=== PATIENT | female | born 1990 | race African-American/Black ===

== ENCOUNTER 2018-11-02 06:01 | Inpatient (IN) ==
[2018-11-02] MEDS ORDERED: BUTORPHANOL 2 MG/ML VIAL IV PRN (06:18)
[2018-11-02] MEDS ORDERED: ONDANSETRON 4 MG/2 ML VIAL IV PRN (06:18)
[2018-11-02] MEDS ORDERED: MEPERIDINE 50 MG/1 ML VIAL IV PRN (06:18)
[2018-11-02] MEDS ORDERED: AMPICILLIN INJ 2,000 MG in SODIUM CHLORIDE 0.9% 100 ML IV SCH (06:30)
[2018-11-02] MEDS ORDERED: OXYTOCIN/LR 20 UNIT/1,000 ML BAG IV SCH (06:30)
[2018-11-02] MEDS ORDERED: LACTATED RINGERS 1,000 ML IV SCH (06:30)
[2018-11-02 06:44] LABS: Basophils % 0.3 % (0.0-0.8); Eosinophils % 0.4 % (0.00-10.9); Hematocrit 23.7 VOL% (35.7-47.0); Hemoglobin 6.9 GM/DL (12.0-16.0); Immature Granulocytes % 0.8 %; Immature Granulocytes Absolute 0.07 #; Lymphocytes # 1.7 10*3/uL (1.4-4.0); Lymphocytes % 18.3 % (21.3-54.2); Mean Corpuscular HGB Conc 29.1 GM/DL (32-36); Mean Corpuscular Hemoglobin 19 PG (27-34); Mean Corpuscular Volume 66.6 FL (87-102); Mean Platelet Volume 10.1 FL (9.6-12.0); Monocytes # 0.7 10*3/uL (0.11-0.8); Monocytes % 7.3 % (1.7-12.7); NRBC # 0.16 10*3/uL; Neutrophils # 6.6 10*3/uL (1.4-7.4); Neutrophils % 72.9 % (38.7-73.9); Platelet Count 248 T/CUMM (130-400); Red Blood Count 3.56 MC/CUMM (3.8-5.5); Red Cell Distribution Width 19.5 % (9.3-17.3); White Blood Count 9.1 T/CUMM (4-12)
[2018-11-02] MEDS ORDERED: AMPICILLIN INJ 1,000 MG in SODIUM CHLORIDE 0.9% 100 ML IV SCH (11:30)
[2018-11-02] MEDS ORDERED: miSOPROStol 200 MCG TABLET ONE (12:07)
[2018-11-02] MEDS ORDERED: LIDOCAINE 1% 50 ML VIAL ONE (12:07)
[2018-11-02] MEDS ORDERED: CARBOPROST TROMETHAMINE 250 MCG/ML AMP IM ONE (12:07)
[2018-11-02 13:24] LABS: Cord Venous Blood HCO3 21.1 MMOL/L; Cord Venous Blood PCO2 37.9 MMHG; Cord Venous Blood PO2 27.8
[2018-11-02] MEDS ORDERED: OXYTOCIN/LR 20 UNIT/1,000 ML BAG IV ONE (15:01)
[2018-11-02] MEDS ORDERED: SODIUM CHLORIDE 0.9% 1,000 ML IV PRN (15:48)
[2018-11-02] MEDS ORDERED: DIPH/TET/ACEL PERT BOOSTER VACCINE 0.5 ML VIAL IM ONE (16:32)
[2018-11-02] MEDS ORDERED: LANOLIN 50% CREAM 0.3 OZ TUBE TOP PRN (16:32)
[2018-11-02] MEDS ORDERED: WITCH HAZEL PADS 100/JAR TOP PRN (16:32)
[2018-11-02] MEDS ORDERED: HYDROCORTISONE 2.5% RECTAL CREAM 30 GM TUBE TOP PRN (16:32)
[2018-11-02] MEDS ORDERED: BISACODYL 10 MG SUPP RECTAL PRN (16:32)
[2018-11-02] MEDS ORDERED: RHO(D) IMMUNE GLOBULIN 300 MCG SYRINGE IM ONE (16:32)
[2018-11-02] MEDS ORDERED: oxyCODONE/ACETAMINOPHEN 5-325 MG TABLET PO PRN ×2 (16:32)
[2018-11-02] MEDS ORDERED: MEASLES/MUMPS/RUBELLA VACCINE 0.5 ML VIAL SUBCUT ONE (16:32)
[2018-11-02] MEDS ORDERED: BENZOCAINE 20%/MENTHOL 0.5% SPRAY 56 GM CAN TOP PRN (16:32)
[2018-11-02] MEDS ORDERED: ACETAMINOPHEN 325 MG TABLET PO PRN (16:32)
[2018-11-02] MEDS ORDERED: IBUPROFEN 800 MG TABLET PO PRN (16:32)
[2018-11-02] MEDS ORDERED: ACETAMINOPHEN/CODEINE 300-30 MG TABLET PO PRN (16:32)
[2018-11-02] MEDS: DOCUSATE SODIUM 100 MG CAPSULE PO SCH (21:09)
[2018-11-03 05:56] LABS: Basophils % 0.4 % (0.0-0.8); Eosinophils # 0.1 10*3/uL (0.0-0.87); Eosinophils % 0.7 % (0.00-10.9); Hematocrit 25.7 VOL% (35.7-47.0); Hemoglobin 7.4 GM/DL (12.0-16.0); Immature Granulocytes % 0.6 %; Immature Granulocytes Absolute 0.06 #; Lymphocytes # 2.1 10*3/uL (1.4-4.0); Lymphocytes % 21.7 % (21.3-54.2); Mean Corpuscular HGB Conc 28.8 GM/DL (32-36); Mean Corpuscular Hemoglobin 21 PG (27-34); Mean Corpuscular Volume 71.4 FL (87-102); Mean Platelet Volume 9.9 FL (9.6-12.0); Monocytes # 0.9 10*3/uL (0.11-0.8); NRBC # 0.09 10*3/uL; Neutrophils # 6.6 10*3/uL (1.4-7.4); Neutrophils % 67.6 % (38.7-73.9); Platelet Count 196 T/CUMM (130-400); Red Cell Distribution Width 21.5 % (9.3-17.3); White Blood Count 9.8 T/CUMM (4-12)
[2018-11-03 06:22] LABS: Hypochromasia 1+; Ovalocytes Slight; Platelet Estimate Adequate
[2018-11-03] MEDS: FERROUS SULFATE 325 MG TABLET PO SCH ×2 (09:33→21:19)
[2018-11-03] MEDS: DOCUSATE SODIUM 100 MG CAPSULE PO SCH ×2 (09:34→21:19)
[2018-11-04 07:20] VITALS: BP 139/69
[2018-11-04] MEDS: DOCUSATE SODIUM 100 MG CAPSULE PO SCH (08:26)
[2018-11-04] MEDS: FERROUS SULFATE 325 MG TABLET PO SCH (08:27)
== END 2018-11-04 12:35 | disposition home or self-care (01) | DRG 560 ==
LOC: N.LDOUT 06:01 → N.LD 06:03 → N.OB 15:53
PROVIDERS: ADMIT Obstetrics & Gynecology; ATTEND Obstetrics & Gynecology

== ENCOUNTER 2022-08-29 22:39 | Observation (INO) ==
[2022-08-30 03:08] LABS: Basophils % 0.4 % (0.0-0.8); Eosinophils % 0.6 % (0.00-10.9); Hematocrit 20.7 VOL% (35.7-47.0); Immature Granulocytes % 0.2 %; Immature Granulocytes Absolute 0.01 #; Lymphocytes % 38.1 % (21.3-54.2); Mean Corpuscular HGB Conc 24.6 GM/DL (32-36); Mean Corpuscular Volume 63.5 FL (87-102); Monocytes # 0.5 10*3/uL (0.11-0.8); Monocytes % 8.5 % (1.7-12.7); Neutrophils % 52.2 % (38.7-73.9); Platelet Count 350 T/CUMM (130-400); Red Blood Count 3.26 MC/CUMM (3.8-5.5); Red Cell Distribution Width 19.9 % (9.3-17.3); White Blood Count 5.3 T/CUMM (4-12)
[2022-08-30 03:10] LABS: Hemoglobin 5.1 GM/DL (12.0-16.0)
[2022-08-30 03:35] LABS: Calcium 9.5 MG/DL (8.5-10.1); Osmolality,Calculated 275.5 MOS/KG (273-304); Potassium 3.4 MMOL/L (3.5-5.1); Total Protein 8.8 G/DL (6.4-8.2)
[2022-08-30] MEDS ORDERED: MAGNESIUM HYDROXIDE SUSP 30 ML UDCUP PO PRN (05:07)
[2022-08-30] MEDS ORDERED: BISACODYL 10 MG SUPP RECTAL PRN (05:07)
[2022-08-30] MEDS ORDERED: SODIUM CHLORIDE 0.9% 1,000 ML IV SCH (05:07)
[2022-08-30] MEDS ORDERED: SODIUM CHLORIDE 0.9% 1,000 ML IV PRN ×2 (05:07→05:25)
[2022-08-30] MEDS ORDERED: ONDANSETRON 4 MG/2 ML VIAL IV PRN (05:07)
[2022-08-30 06:36] LABS: Basophils % 0.4 % (0.0-0.8); Eosinophils % 0.8 % (0.00-10.9); Immature Granulocytes % 0.2 %; Immature Granulocytes Absolute 0.01 #; Lymphocytes # 2.1 10*3/uL (1.4-4.0); Lymphocytes % 43.8 % (21.3-54.2); Mean Corpuscular HGB Conc 25.8 GM/DL (32-36); Mean Corpuscular Volume 62.1 FL (87-102); Mean Platelet Volume 9.9 FL (9.6-12.0); Monocytes # 0.5 10*3/uL (0.11-0.8); Monocytes % 10.8 % (1.7-12.7); Platelet Count 308 T/CUMM (130-400); Red Blood Count 3.06 MC/CUMM (3.8-5.5); Red Cell Distribution Width 19.9 % (9.3-17.3); White Blood Count 4.9 T/CUMM (4-12)
[2022-08-30 06:37] LABS: Hemoglobin 4.9 GM/DL (12.0-16.0)
[2022-08-30 06:58] LABS: Anisocytosis 1+; Hypochromia 2+; Platelet Estimate Normal; Poikilocytosis 1+
[2022-08-30] MEDS ORDERED: AMOXICILLIN/CLAV 875 MG TABLET PO SCH (09:00)
[2022-08-30] MEDS ORDERED: DOCUSATE SODIUM 100 MG CAPSULE PO SCH (09:00)
[2022-08-30] MEDS ORDERED: INFLUENZA VIRUS VACCINE 0.5 ML SYRINGE IM ONE (09:08)
[2022-08-30 13:19] VITALS: BP 132/59
== END 2022-08-30 12:35 | disposition home or self-care (01) ==
LOC: N.EDINP 22:39 → N.ED 22:39 → N.OB 08-30 04:39
PROVIDERS: ADMIT Specialist; ATTEND Specialist